=== PATIENT | female | born 1975 | race Caucasian/White ===

== ENCOUNTER 2017-09-08 18:02 | Emergency (ER) | payer MEDICARE, MEDICAID ==
[~2017-09-08] VITALS: Ht 175.3 cm; Wt 80.0 kg
[~2017-09-08 18:02] MED LIST: DARV PO; METH500T3 PO; TRAM50 PO; Z.0.NO CURRENT MEDS
[2017-09-08 18:07] VITALS: BP 150/83; PULSE 83; RESP 14; TEMP 97.8; O2SAT 99
[2017-09-08 19:59] VITALS: BP 171/78; PULSE 75; RESP 19; O2SAT 97
[2017-09-08] MEDS ORDERED: SODIUM CHLOR 0.9% 1000 ML INJ 1,000 ML IV ONE (20:10)
[2017-09-08] MEDS ORDERED: MORPHINE SULFATE 4 MG/ML INJ IV PUSH ONE (20:15)
[2017-09-08] MEDS ORDERED: ONDANSETRON HCL 4 MG/2 ML VIAL IM ONE (20:15)
[2017-09-08] MEDS ORDERED: SODIUM CHLORIDE 0.9% FLUSH 10 ML FLUSH IVF PRN (20:15)
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
[2017-09-08 20:36] VITALS: BP 154/85; PULSE 72; RESP 18; O2SAT 98
[2017-09-08 20:41] LABS: AUTOMATED NEUTROPHIL # 4.9 TH/MM3 (1.8-7.7); BASOPHIL % 0.6 % (0.0-2.0); EOSINOPHIL # 0.2 TH/MM3 (0-0.4); EOSINOPHIL % 2.8 % (0.0-4.0); HEMATOCRIT 39.6 % (35.0-46.0); HEMO FLAGS DIFF FINAL; LYMPH % 28.5 % (9.0-44.0); LYMPHOCYTE # 2.2 TH/MM3 (1.0-4.8); MEAN CELL VOLUME 93.3 FL (80.0-100.0); MEAN CORPUSCULAR HEMOGLOBIN 30.8 PG (27.0-34.0); MONO % 6.5 % (0.0-8.0); NEUT % 61.6 % (16.0-70.0); PLATELET COUNT 210 TH/MM3 (150-450); RED BLOOD COUNT 4.25 MIL/MM3 (4.00-5.30); RED CELL DISTRIBUTION WIDTH 14.2 % (11.6-17.2); WHITE BLOOD COUNT 7.9 TH/MM3 (4.0-11.0)
[2017-09-08 21:01] LABS: ALT (GPT) 139 U/L (10-53)
[2017-09-08 21:04] LABS: ALKALINE PHOSPHATASE 124 U/L (45-117); TOTAL BILIRUBIN ADULT 0.2 MG/DL (0.2-1.0)
[2017-09-08 21:15] LABS: ANION GAP 5 MEQ/L (5-15); AST (GOT) 95 U/L (15-37); BICARBONATE 28.2 MEQ/L (21.0-32.0); BLOOD UREA NITROGEN 19 MG/DL (7-18); CHLORIDE 104 MEQ/L (98-107); GLOMERULAR FILTRATION RATE 57 ML/MIN (>89); POTASSIUM 4.3 MEQ/L (3.5-5.1); SODIUM (NA) 137 MEQ/L (136-145)
[2017-09-08 21:42] LABS: BLOOD, URINE SMALL (NEG); GLUCOSE,URINE NEG (NEG); KETONE, URINE NEG (NEG); NITRITE,URINE NEG (NEG); URINE COLOR YELLOW (YELLW/STRAW)
[2017-09-08 22:04] LABS: MUCUS URINE RARE /lpf (OCC)
[2017-09-08 22:05] LABS: BACTERIA, URINE OCC /hpf; COMMENT (UR) CULTURE INDICATED; CULTURE IF INDICATED CULTURE INDICATED; SQUAMOUS EPITHELIAL CELL URINE 0-5 /hpf (0-5)
[2017-09-08] MEDS ORDERED: cefTRIAXone INJ 1,000 MG in SODIUM CHLORIDE 0.9% INJ 100 ML IV ONE (22:15)
--- NOTE | 2017-09-08 22:18 | PD ---
Physical Exam Date Seen by Provider: Sep 08, 2017 Data Data Last Documented VS Vital Signs Date Time Temp Pulse Resp B/P (MAP) Pulse Ox O2 Delivery O2 Flow Rate FiO2 09/08/17 20:36 72 18 154/85 (108) 98 Room Air 09/08/17 18:07 97.8 Orders Orders Complete Blood Count With Diff (09/08/17 20:10) Comprehensive Metabolic Panel (09/08/17 20:10) Urinalysis - C+S If Indicated (09/08/17 20:10) Ed Urine Pregnancytest Poc (09/08/17 20:10) Ecg Monitoring (09/08/17 20:10) Iv Access Insert/Monitor (09/08/17 20:10) Morphine Inj (Morphine Inj) (09/08/17 20:15) Sodium Chloride 0.9% Flush (Ns Flush) (09/08/17 20:15) Sodium Chlor 0.9% 1000 Ml Inj (Ns 1000 M (09/08/17 20:10) Ondansetron Inj (Zofran Inj) (09/08/17 20:15) Urine Culture (09/08/17 20:40) Ceftriaxone Inj (Rocephin Inj) (09/08/17 22:15) Labs Laboratory Tests Test 09/08/17 20:00 09/08/17 20:40 White Blood Count 7.9 TH/MM3 Red Blood Count 4.25 MIL/MM3 Hemoglobin 13.1 GM/DL Hematocrit 39.6 % Mean Corpuscular Volume 93.3 FL Mean Corpuscular Hemoglobin 30.8 PG Mean Corpuscular Hemoglobin Concent 33.0 % Red Cell Distribution Width 14.2 % Platelet Count 210 TH/MM3 Mean Platelet Volume 9.2 FL Neutrophils (%) (Auto) 61.6 % Lymphocytes (%) (Auto) 28.5 % Monocytes (%) (Auto) 6.5 % Eosinophils (%) (Auto) 2.8 % Basophils (%) (Auto) 0.6 % Neutrophils # (Auto) 4.9 TH/MM3 Lymphocytes # (Auto) 2.2 TH/MM3 Monocytes # (Auto) 0.5 TH/MM3 Eosinophils # (Auto) 0.2 TH/MM3 Basophils # (Auto) 0.0 TH/MM3 CBC Comment DIFF FINAL Differential Comment Blood Urea Nitrogen 19 MG/DL Creatinine 1.05 MG/DL Random Glucose 117 MG/DL Total Protein 6.8 GM/DL Albumin 2.9 GM/DL Calcium Level 8.3 MG/DL Alkaline Phosphatase 124 U/L Aspartate Amino Transf (AST/SGOT) 95 U/L Alanine Aminotransferase (ALT/SGPT) 139 U/L Total Bilirubin 0.2 MG/DL Sodium Level 137 MEQ/L Potassium Level 4.3 MEQ/L Chloride Level 104 MEQ/L Carbon Dioxide Level 28.2 MEQ/L Anion Gap 5 MEQ/L Estimat Glomerular Filtration Rate 57 ML/MIN Urine Color YELLOW Urine Turbidity CLEAR Urine pH 5.0 Urine Specific [place] 1.014 Urine Protein NEG mg/dL Urine Glucose (UA) NEG mg/dL Urine Ketones NEG mg/dL Urine Occult Blood SMALL Urine Nitrite NEG Urine Bilirubin NEG Urine Urobilinogen LESS THAN 2.0 MG/DL Urine Leukocyte Esterase SMALL Urine RBC 4-9 /hpf Urine WBC 3-5 /hpf Urine WBC Clumps RARE Urine Squamous Epithelial Cells 0-5 /hpf Urine Bacteria OCC /hpf Urine Mucus RARE /lpf Microscopic Urinalysis Comment CULTURE INDICATED MDM Medical Record Reviewed: Yes Supervised Visit with JOSHUA: Yes Interpretation(s) Vital Signs Date Time Temp Pulse Resp B/P (MAP) Pulse Ox O2 Delivery O2 Flow Rate FiO2 09/08/17 20:36 72 18 154/85 (108) 98 Room Air 09/08/17 19:59 75 19 171/78 (109) 97 Room Air 09/08/17 18:07 97.8 83 14 150/83 (105) 99 Laboratory Tests Test 09/08/17 20:00 09/08/17 20:40 White Blood Count 7.9 TH/MM3 (4.0-11.0) Red Blood Count 4.25 MIL/MM3 (4.00-5.30) Hemoglobin 13.1 GM/DL (11.6-15.3) Hematocrit 39.6 % (35.0-46.0) Mean Corpuscular Volume 93.3 FL (80.0-100.0) Mean Corpuscular Hemoglobin 30.8 PG (27.0-34.0) Mean Corpuscular Hemoglobin Concent 33.0 % (32.0-36.0) Red Cell Distribution Width 14.2 % (11.6-17.2) Platelet Count 210 TH/MM3 (150-450) Mean Platelet Volume 9.2 FL (7.0-11.0) Neutrophils (%) (Auto) 61.6 % (16.0-70.0) Lymphocytes (%) (Auto) 28.5 % (9.0-44.0) Monocytes (%) (Auto) 6.5 % (0.0-8.0) Eosinophils (%) (Auto) 2.8 % (0.0-4.0) Basophils (%) (Auto) 0.6 % (0.0-2.0) Neutrophils # (Auto) 4.9 TH/MM3 (1.8-7.7) Lymphocytes # (Auto) 2.2 TH/MM3 (1.0-4.8) Monocytes # (Auto) 0.5 TH/MM3 (0-0.9) Eosinophils # (Auto) 0.2 TH/MM3 (0-0.4) Basophils # (Auto) 0.0 TH/MM3 (0-0.2) CBC Comment DIFF FINAL Differential Comment Blood Urea Nitrogen 19 MG/DL (7-18) Creatinine 1.05 MG/DL (0.50-1.00) Random Glucose 117 MG/DL (74-106) Total Protein 6.8 GM/DL (6.4-8.2) Albumin 2.9 GM/DL (3.4-5.0) Calcium Level 8.3 MG/DL (8.5-10.1) Alkaline Phosphatase 124 U/L (45-117) Aspartate Amino Transf (AST/SGOT) 95 U/L (15-37) Alanine Aminotransferase (ALT/SGPT) 139 U/L (10-53) Total Bilirubin 0.2 MG/DL (0.2-1.0) Sodium Level 137 MEQ/L (136-145) Potassium Level 4.3 MEQ/L (3.5-5.1) Chloride Level 104 MEQ/L (98-107) Carbon Dioxide Level 28.2 MEQ/L (21.0-32.0) Anion Gap 5 MEQ/L (5-15) Estimat Glomerular Filtration Rate 57 ML/MIN (>89) Urine Color YELLOW (YELLW/STRAW) Urine Turbidity CLEAR (CLEAR) Urine pH 5.0 (5.0-8.5) Urine Specific [place] 1.014 (1.002-1.035) Urine Protein NEG mg/dL (NEG-TRACE) Urine Glucose (UA) NEG mg/dL (NEG) Urine Ketones NEG mg/dL (NEG) Urine Occult Blood SMALL (NEG) Urine Nitrite NEG (NEG) Urine Bilirubin NEG (NEG) Urine Urobilinogen LESS THAN 2.0 MG/DL (LESS Urine Leukocyte Esterase SMALL (NEG) Urine RBC 4-9 /hpf (0-3) Urine WBC 3-5 /hpf (0-5) Urine WBC Clumps RARE (NONE) Urine Squamous Epithelial Cells 0-5 /hpf (0-5) Urine Bacteria OCC /hpf (NONE) Urine Mucus RARE /lpf (OCC) Microscopic Urinalysis Comment CULTURE INDICATED Differential Diagnosis Kidney stone, UTI, pyelonephritis Narrative Course I, Dr. Mcclellan, have reviewed the advance practice practitioner's documentation and am in agreement, met with the patient face to face, made the diagnosis, and the medical decision making was done by me. *My assessment and Findings: Patient is a 42-year-old female who presents to emergency room for evaluation of bilateral lower back pain with dysuria, urinary frequency urgency and hematuria. Patient reports that she has had subjective fevers and chills, reports no abdominal pain, denies any nausea or vomiting. During the course of her emergency room visit, differential diagnosis was reviewed with patient. Patient was placed on a reinforcing steel worker wire mesh and had frequent blood pressure monitoring. The patient did have a 20-gauge IV access obtained and blood work was sent. Patient was given IV morphine, IV fluids as well as IV Zofran for nausea and pain. CBC & BMP Diagram 09/08/17 20:00 Total Protein 6.8, Albumin 2.9 L, Calcium Level 8.3 L, Alkaline Phosphatase 124 H, Aspartate Amino Transf (AST/SGOT) 95 H, Alanine Aminotransferase (ALT/SGPT) 139 H, Total Bilirubin 0.2 UA is positive for small leuk esterase, 3-5 white blood cells, rare white blood cell clumps, occasional bacteria, 4-9 red blood cells. Patient with most likely pyelonephritis versus UTI. Urine culture was sent, patient will be given IV dose of Rocephin and sent home with a prescription for antibiotics. I reviewed all labs and all studies with patient in detail, she will return to the emergency as needed. Patient is happy with plan of care. Diagnosis Primary Impression: UTI (urinary tract infection) Qualified Codes: N30.01 - Acute cystitis with hematuria Patient Instructions: General Instructions Additional Instruction: Please take all antibiotics as prescribed Please follow-up with all cultures from today Please follow up with your primary care doctor in 2-3 days Return to the ER if symptoms worsen or progress Return to the ER as needed Med/Other Pt SpecificInfo: Prescription(s) given Scripts Nitrofurantoin Monohydrate Macrocrystals (Macrobid) 100 Mg Cap 100 MG PO BID for Infection for 10 Days, #20 CAP 0 Refills Prov: Kerry Mcclellan DO 09/08/17 Disposition: 01 DISCHARGE HOME Condition: Stable Kerry Mcclellan DO Sep 08, 2017 22:18
[2017-09-08] MEDS ORDERED: MACR100C2 PO (23:10)
== END 2017-09-08 23:45 | disposition home or self-care (01) ==
LOC: NEPD 18:02
DX: N30.01 Acute cystitis with hematuria (principal); B96.29 Other Escherichia coli [E. coli] as the cause of diseases classified elsewhere; F17.200 Nicotine dependence, unspecified, uncomplicated
CPT/HCPCS: 80053; 81001; 85025; 87077; 87086; 87186; 96361; 96365; 96372; 96375; 99284; J0696; J2270; J2405; J7030

== ENCOUNTER 2018-04-04 07:57 | Emergency (ER) | payer MEDICARE, MEDICAID ==
[~2018-04-04] VITALS: Ht 175.3 cm; Wt 76.0 kg
[~2018-04-04 07:57] MED LIST changes: -DARV PO; +MACR100C2 PO; -METH500T3 PO; -TRAM50 PO; -Z.0.NO CURRENT MEDS
[2018-04-04 08:01] VITALS: BP 180/95; PULSE 80; RESP 18; TEMP 100.6
[2018-04-04] MEDS ORDERED: SODIUM CHLOR 0.9% 1000 ML INJ 1,000 ML IV SCH (08:06)
--- NOTE | 2018-04-04 08:09 | PD ---
HPI Chief Complaint: Back pain Time Seen by Provider: 08:06 Travel History International Travel<30 days: No Contact w/Intl Traveler<30days: No Traveled to known affect area: No History of Present Illness HPI The patient is a 42-year-old female who presents to the emergency department via EMS for low back pain, dysuria, frequency, urgency, and fever. The patient states she has had a 3 day history of dysuria with frequency and urgency. The patient then developed a fever as high as 103 this morning. The patient now complains of back pain on left lower aspect of her back which radiates to the right lower back into the left lower abdomen. She does note nausea with vomiting secondary to the pain, denies any anterior upper abdominal pain. The patient denies any current vaginal bleeding or discharge. The patient states she has a history of PTSD and depression, is currently homeless and living "on the streets ". The patient does complain of myalgias associated with the back pain. She denies any acute chest pain, shortness of breath, or cough. Symptoms are moderate. There are no current alleviating factors. PFSH Past Medical History Asthma: Yes Bipolar Disorder: Yes Depression: Yes Diabetes: No Diminished Hearing: No Hypertension: Yes Psychiatric: Yes (PTSD) Immunizations Current: Yes : 4 Para: 3 Miscarriage: 1 Tubal Ligation: Yes (1996) Social History Alcohol Use: No Tobacco Use: Yes (10/24 ppd) Substance Use: Yes (HX IV DRUG ABUSE) Allergies-Medications (Allergen,Severity, Reaction): Coded Allergies: codeine (Verified Allergy, Severe, Anaphylaxis, 04/04/18) ketorolac (Unverified Allergy, Severe, HIVES-SOB, 04/04/18) tramadol (Unverified Allergy, Severe, ITCHING-SOB, 04/04/18) naloxone (Verified Allergy, Unknown, 04/04/18) Reported Meds & Prescriptions Reported Meds & Active Scripts Active Reported Prazosin (Prazosin HCl) 2 Mg Cap 4 Mg PO HS Citalopram (Citalopram Hydrobromide) 40 Mg Tab 40 Mg PO DAILY [place] Carbonate 300 Mg Cap 600 Mg PO HS [place] Carbonate 300 Mg Cap 300 Mg PO DAILY@0600 Hydroxyzine HCl 50 Mg Tab 50 Mg PO QID PRN Review of Systems Except as stated in HPI: all other systems reviewed are Neg General / Constitutional: Positive: Fever, Chills HENT: No: Lightheadedness Cardiovascular: No: Chest Pain or Discomfort Respiratory: No: Shortness of Breath Gastrointestinal: Positive: Nausea, Vomiting, No: Diarrhea, Abdominal Pain Genitourinary: Positive: Urgency, Frequency, Dysuria, Flank Pain Musculoskeletal: Positive: Myalgias Skin: No Rash Physical Exam Narrative GENERAL: Awake, alert, pleasant 42-year-old female who appears her stated age and is in no acute respiratory distress. SKIN: Focused skin assessment warm/dry. HEAD: Atraumatic. Normocephalic. EYES: Pupils equal and round. No scleral icterus. No injection or drainage. ENT: No nasal bleeding or discharge. No visible teeth. NECK: Trachea midline. No JVD. CARDIOVASCULAR: Regular rate and rhythm. No murmur appreciated. Heart rate in the 90s. RESPIRATORY: No accessory muscle use. Clear to auscultation. Breath sounds equal bilaterally. GASTROINTESTINAL: Abdomen soft, non-tender, nondistended. No rebound tenderness. Back: No CVA tenderness. Mild tenderness of the sacroiliac and lower lumbar region bilaterally. MUSCULOSKELETAL: No obvious deformities. No clubbing. No cyanosis. No edema. NEUROLOGICAL: Awake and alert. No obvious cranial nerve deficits. Motor grossly within normal limits. Normal speech. PSYCHIATRIC: Appropriate mood and affect; insight and judgment normal. Data Data Last Documented VS Vital Signs Date Time Temp Pulse Resp B/P (MAP) Pulse Ox O2 Delivery O2 Flow Rate FiO2 04/04/18 11:00 100.2 04/04/18 08:20 99 Room Air 04/04/18 08:01 80 18 180/95 (123) Orders Orders Complete Blood Count With Diff (04/04/18 08:06) Comprehensive Metabolic Panel (04/04/18 08:06) Lipase (04/04/18 08:06) Lactic Acid (04/04/18 08:06) Urinalysis - C+S If Indicated (04/04/18 08:06) Iv Access Insert/Monitor (04/04/18 08:06) Ecg Monitoring (04/04/18 08:06) Oximetry (04/04/18 08:06) Morphine Inj (Morphine Inj) (04/04/18 08:15) Sodium Chlor 0.9% 1000 Ml Inj (Ns 1000 M (04/04/18 08:06) Sodium Chloride 0.9% Flush (Ns Flush) (04/04/18 08:15) Ondansetron Odt (Zofran Odt) (04/04/18 08:15) Blood Culture (04/04/18 08:06) Acetaminophen (Tylenol) (04/04/18 08:15) [place] (Li) (04/04/18 08:09) Vascular Access Team Consult/P PRN (04/04/18 08:40) Vascular Poc Ultrasound (04/04/18 ) Ct Abd/Pel W/O Iv Contrast (04/04/18 ) Ed Discharge Order (04/04/18 11:23) Labs Laboratory Tests Test 04/04/18 08:19 04/04/18 09:11 Urine Color YELLOW Urine Turbidity CLEAR Urine pH 6.0 Urine Specific [place] 1.020 Urine Protein TRACE mg/dL Urine Glucose (UA) NEG mg/dL Urine Ketones NEG mg/dL Urine Occult Blood NEG Urine Nitrite NEG Urine Bilirubin NEG Urine Urobilinogen 4.0 MG/DL Urine Leukocyte Esterase NEG Urine RBC 2 /hpf Urine WBC 2 /hpf Urine Squamous Epithelial Cells 2 /hpf Urine Hyaline Casts 2 /lpf Microscopic Urinalysis Comment CULT NOT INDICATED White Blood Count 9.1 TH/MM3 Red Blood Count 4.70 MIL/MM3 Hemoglobin 13.7 GM/DL Hematocrit 41.1 % Mean Corpuscular Volume 87.5 FL Mean Corpuscular Hemoglobin 29.2 PG Mean Corpuscular Hemoglobin Concent 33.4 % Red Cell Distribution Width 13.9 % Platelet Count 164 TH/MM3 Mean Platelet Volume 9.3 FL Neutrophils (%) (Auto) 91.8 % Lymphocytes (%) (Auto) 5.3 % Monocytes (%) (Auto) 2.3 % Eosinophils (%) (Auto) 0.3 % Basophils (%) (Auto) 0.3 % Neutrophils # (Auto) 8.3 TH/MM3 Lymphocytes # (Auto) 0.5 TH/MM3 Monocytes # (Auto) 0.2 TH/MM3 Eosinophils # (Auto) 0.0 TH/MM3 Basophils # (Auto) 0.0 TH/MM3 CBC Comment DIFF FINAL Differential Comment Blood Urea Nitrogen 10 MG/DL Creatinine 1.11 MG/DL Random Glucose 88 MG/DL Total Protein 7.9 GM/DL Albumin 3.2 GM/DL Calcium Level 9.0 MG/DL Alkaline Phosphatase 96 U/L Aspartate Amino Transf (AST/SGOT) 74 U/L Alanine Aminotransferase (ALT/SGPT) 105 U/L Total Bilirubin 0.9 MG/DL Sodium Level 138 MEQ/L Potassium Level 3.4 MEQ/L Chloride Level 102 MEQ/L Carbon Dioxide Level 25.9 MEQ/L Anion Gap 10 MEQ/L Estimat Glomerular Filtration Rate 54 ML/MIN Lactic Acid Level 1.7 mmol/L Lipase 52 U/L [place] Level LESS THAN 0.1 MEQ/L MDM Medical Decision Making Medical Screen Exam Complete: Yes Emergency Medical Condition: Yes Medical Record Reviewed: Yes Interpretation(s) Laboratory Tests Test 04/04/18 08:19 04/04/18 09:11 Urine Color YELLOW Urine Turbidity CLEAR Urine pH 6.0 Urine Specific [place] 1.020 Urine Protein TRACE mg/dL Urine Glucose (UA) NEG mg/dL Urine Ketones NEG mg/dL Urine Occult Blood NEG Urine Nitrite NEG Urine Bilirubin NEG Urine Urobilinogen 4.0 MG/DL Urine Leukocyte Esterase NEG Urine RBC 2 /hpf Urine WBC 2 /hpf Urine Squamous Epithelial Cells 2 /hpf Urine Hyaline Casts 2 /lpf Microscopic Urinalysis Comment CULT NOT INDICATED White Blood Count 9.1 TH/MM3 Red Blood Count 4.70 MIL/MM3 Hemoglobin 13.7 GM/DL Hematocrit 41.1 % Mean Corpuscular Volume 87.5 FL Mean Corpuscular Hemoglobin 29.2 PG Mean Corpuscular Hemoglobin Concent 33.4 % Red Cell Distribution Width 13.9 % Platelet Count 164 TH/MM3 Mean Platelet Volume 9.3 FL Neutrophils (%) (Auto) 91.8 % Lymphocytes (%) (Auto) 5.3 % Monocytes (%) (Auto) 2.3 % Eosinophils (%) (Auto) 0.3 % Basophils (%) (Auto) 0.3 % Neutrophils # (Auto) 8.3 TH/MM3 Lymphocytes # (Auto) 0.5 TH/MM3 Monocytes # (Auto) 0.2 TH/MM3 Eosinophils # (Auto) 0.0 TH/MM3 Basophils # (Auto) 0.0 TH/MM3 CBC Comment DIFF FINAL Differential Comment Blood Urea Nitrogen 10 MG/DL Creatinine 1.11 MG/DL Random Glucose 88 MG/DL Total Protein 7.9 GM/DL Albumin 3.2 GM/DL Calcium Level 9.0 MG/DL Alkaline Phosphatase 96 U/L Aspartate Amino Transf (AST/SGOT) 74 U/L Alanine Aminotransferase (ALT/SGPT) 105 U/L Total Bilirubin 0.9 MG/DL Sodium Level 138 MEQ/L Potassium Level 3.4 MEQ/L Chloride Level 102 MEQ/L Carbon Dioxide Level 25.9 MEQ/L Anion Gap 10 MEQ/L Estimat Glomerular Filtration Rate 54 ML/MIN Lactic Acid Level 1.7 mmol/L Lipase 52 U/L [place] Level LESS THAN 0.1 MEQ/L Last Impressions Abdomen/Pelvis CT 04/04/18 0000 Signed Impressions: CONCLUSION: 1. Is more prominent spleen uncertain etiology 2. Liver does not appear particularly cirrhotic 3. Abnormal antrum of the stomach 4. I do not see a source of the patient's abdominal pain and fever. No inflamm atory changes are identified. Differential Diagnosis Differential diagnosis includes pyelonephritis, nephrolithiasis, hydronephrosis , UTI, sepsis, diverticulitis, dehydration, acute kidney injury, acute renal failure. Narrative Course IV was established, labs are drawn and sent, and the patient was placed on cardiac telemetry monitoring and continuous pulse oximetry monitoring. The patient was administered morphine, Zofran, Tylenol, and IV fluids. UA was sent to lab. Blood culture and lactic acid were sent to lab. White count is unremarkable. Lactic acid is normal. UA reveals urobilinogen, otherwise unremarkable. Therefore, noncontrast CT of the abdomen and pelvis was performed to evaluate for possible nephrolithiasis and/or diverticulitis. CT of the abdomen and pelvis is unremarkable is unremarkable. Labs are within normal limits and vitals are stable. Patient does have a febrile illness with no obvious source. Patient is advised alternate Tylenol and Motrin and follow- up with a primary physician. Diagnosis Primary Impression: Febrile illness Additional Impression: Back pain Qualified Codes: M54.5 - Low back pain Referrals: [facility] as needed Patient Instructions: General Instructions Additional Instructions: Please provide the patient a copy of her labs and CT results at discharge. Follow-up with your primary physician. Return if symptoms worsen or progress. Med/Other Pt SpecificInfo: No Change to Meds Disposition: 01 DISCHARGE HOME Condition: Stable Chandu Deluca MD Apr 04, 2018 08:08
[2018-04-04] MEDS ORDERED: SODIUM CHLORIDE 0.9% FLUSH 10 ML FLUSH IV FLUSH PRN (08:15)
[2018-04-04] MEDS ORDERED: ACETAMINOPHEN 325 MG TAB PO ONE (08:15)
[2018-04-04] MEDS ORDERED: ONDANSETRON ODT 4 MG TAB PO ONE (08:15)
[2018-04-04] MEDS ORDERED: MORPHINE SULFATE 4 MG/ML INJ IV PUSH ONE (08:15)
[2018-04-04 08:20] VITALS: O2SAT 99
[2018-04-04] MEDS ORDERED: LITH300C2 PO ×2 (08:50)
[2018-04-04] MEDS ORDERED: HYDR50TA94 PO (08:50)
[2018-04-04] MEDS ORDERED: PRAZ2CAP PO (08:50)
[2018-04-04] MEDS ORDERED: CITA40TA4 PO (08:50)
[2018-04-04 08:58] LABS: BILIRUBIN, URINE NEG (NEG); BLOOD, URINE NEG (NEG); GLUCOSE,URINE NEG (NEG); HYALINE CAST, URINE 2 /lpf (RARE); KETONE, URINE NEG (NEG); NITRITE,URINE NEG (NEG); SQUAMOUS EPITHELIAL CELL URINE 2 /hpf (0-5); URINE COLOR YELLOW (YELLW/STRAW); URINE LEUKOCYTE ESTERASE NEG (NEG)
[2018-04-04 09:28] LABS: AUTOMATED NEUTROPHIL # 8.3 TH/MM3 (1.8-7.7); BASOPHIL % 0.3 % (0.0-2.0); EOSINOPHIL % 0.3 % (0.0-4.0); HEMATOCRIT 41.1 % (35.0-46.0); HEMOGLOBIN 13.7 GM/DL (11.6-15.3); LYMPH % 5.3 % (9.0-44.0); LYMPHOCYTE # 0.5 TH/MM3 (1.0-4.8); MEAN CELL VOLUME 87.5 FL (80.0-100.0); MEAN CORPUSCULAR HEMOGLOBIN 29.2 PG (27.0-34.0); MEAN CORPUSCULAR HGB CONC 33.4 % (32.0-36.0); MEAN PLATELET VOLUME 9.3 FL (7.0-11.0); MONO % 2.3 % (0.0-8.0); MONOCYTE # 0.2 TH/MM3 (0-0.9); NEUT % 91.8 % (16.0-70.0); PLATELET COUNT 164 TH/MM3 (150-450); RED CELL DISTRIBUTION WIDTH 13.9 % (11.6-17.2); WHITE BLOOD COUNT 9.1 TH/MM3 (4.0-11.0)
[2018-04-04 09:48] LABS: ALBUMIN 3.2 GM/DL (3.4-5.0); AST (GOT) 74 U/L (15-37); BICARBONATE 25.9 MEQ/L (21.0-32.0); BLOOD UREA NITROGEN 10 MG/DL (7-18); CHLORIDE 102 MEQ/L (98-107); CREATININE 1.11 MG/DL (0.50-1.00); GLOMERULAR FILTRATION RATE 54 ML/MIN (>89); GLUCOSE,RANDOM 88 MG/DL (74-106); SODIUM (NA) 138 MEQ/L (136-145)
[2018-04-04 09:49] LABS: ALT (GPT) 105 U/L (10-53)
[2018-04-04 09:51] LABS: ALKALINE PHOSPHATASE 96 U/L (45-117); TOTAL BILIRUBIN ADULT 0.9 MG/DL (0.2-1.0); TOTAL PROTEIN 7.9 GM/DL (6.4-8.2)
[2018-04-04 11:00] VITALS: TEMP 100.2
--- NOTE | 2018-04-04 11:18 | RADRPT ---
EXAM DATE: 04/04/2018 10:57 AM EDT AGE/SEX: 42 years / Female INDICATIONS: Abdominal pain with fever. CLINICAL DATA: This is the patient's initial encounter. Patient reports that signs and symptoms have been present for 1 day and indicates a pain score of 4/10. MEDICAL/SURGICAL HISTORY: Hypertension. Asthma. Tubal ligation. RADIATION DOSE: 15.13 CTDI (mGy) COMPARISON: No prior exams available for comparison. TECHNIQUE: Multiple contiguous axial images were obtained through the abdomen. Images were obtained using multiple row detector helical technique. Using dose reduction techniques, radiation dose was ke pt as low as reasonably achievable to obtain optimal diagnostic quality images. FINDINGS: Lower lungs are clear. The liver is free of focal defects. Gallbladder small and contracted Pancreas is unremarkable Spleen is prominent. The antrum of the stomach has a very thick wall, possibly due to contraction. Co rrelation suggested Adrenal glands and kidneys are unremarkable Cecum and abdominal colon is unremarkable without inflammatory changes. Moderate vascular callus occa sions are present without adenopathy In the pelvis there is no free fluid. Moderate stool is evident. Review of bone windows reveals only degenerative changes. CONCLUSION: 1. Is more prominent spleen uncertain etiology 2. Liver does not appear particularly cirrhotic 3. Abnormal antrum of the stomach 4. I do not see a source of the patient's abdominal pain and fever. No inflammatory changes are iden tified. Electronically signed by: Marques Villasenor MD 04/04/2018 11:16 AM EDT
== END 2018-04-04 12:13 | disposition home or self-care (01) ==
LOC: NEPC 07:57
DX: R50.9 Fever, unspecified (principal); M54.5 Low back pain; B96.89 Other specified bacterial agents as the cause of diseases classified elsewhere; R30.0 Dysuria; R35.0 Frequency of micturition; R11.2 Nausea with vomiting, unspecified; I10 Essential (primary) hypertension; J45.909 Unspecified asthma, uncomplicated; F31.9 Bipolar disorder, unspecified; F43.10 Post-traumatic stress disorder, unspecified; F17.210 Nicotine dependence, cigarettes, uncomplicated; Z59.0 Homelessness; Z88.5 Allergy status to narcotic agent; Z88.8 Allergy status to other drugs, medicaments and biological substances; Z79.899 Other long term (current) drug therapy
CPT/HCPCS: 74176; 80053; 80178; 81001; 83605; 83690; 85025; 87040; 87077; 87186; 87205; 96361; 96374; 99285; J2270; J7030

== ENCOUNTER 2018-04-13 21:26 | Emergency (ER) | payer MEDICARE, MEDICAID ==
[~2018-04-13] VITALS: Ht 175.3 cm; Wt 76.0 kg
[~2018-04-13 21:26] MED LIST changes: +CITA40TA4 PO; +HYDR50TA94 PO; +LITH300C2 PO; -MACR100C2 PO; +PRAZ2CAP PO
[2018-04-13 21:46] VITALS: BP 171/92; PULSE 87; RESP 16; TEMP 98.4; O2SAT 100
--- NOTE | 2018-04-13 22:48 | PD ---
HPI Chief Complaint: Skin Problem Time Seen by Provider: 22:37 Travel History International Travel<30 days: No Contact w/Intl Traveler<30days: No Traveled to known affect area: No History of Present Illness HPI 42-year-old white female presents emergency department with an abscess to her inner left thigh for the past 4 days. He states it has opened and drained. She states the pain is moderate to severe. She is homeless. She is living on the streets. She does not have access to shower to bathe. She denies any fever chills. Exacerbated by movement and palpation. No alleviating factors. History of MRSA in the past. She denies any IV drug abuse. States she is on Suboxone. [facility] Past Medical History Asthma: Yes Bipolar Disorder: Yes Anxiety: Yes (PTSD) Depression: Yes Diabetes: No Diminished Hearing: No Hypertension: Yes Psychiatric: Yes (PTSD) Immunizations Current: Yes Tetanus Vaccination: Unknown Influenza Vaccination: No ?: Not LMP: 03/23/2018 : 4 Para: 3 Miscarriage: 1 Tubal Ligation: Yes (1996) Social History Alcohol Use: No Tobacco Use: Yes (1 ppd) Substance Use: Yes (heroine) Allergies-Medications (Allergen,Severity, Reaction): Coded Allergies: codeine (Verified Allergy, Severe, Anaphylaxis, 04/13/18) ketorolac (Unverified Allergy, Severe, HIVES-SOB, 04/13/18) tramadol (Unverified Allergy, Severe, ITCHING-SOB, 04/13/18) naloxone (Verified Allergy, Unknown, 04/13/18) Reported Meds & Prescriptions Reported Meds & Active Scripts Active Reported Prazosin (Prazosin HCl) 2 Mg Cap 4 Mg PO HS Citalopram (Citalopram Hydrobromide) 40 Mg Tab 40 Mg PO DAILY [place] Carbonate 300 Mg Cap 600 Mg PO HS [place] Carbonate 300 Mg Cap 300 Mg PO DAILY@0600 Hydroxyzine HCl 50 Mg Tab 50 Mg PO QID PRN Review of Systems General / Constitutional: No: Fever, Chills Eyes: No: Visual changes HENT: No: Headaches Cardiovascular: No: Chest Pain or Discomfort Respiratory: No: Shortness of Breath Gastrointestinal: No: Abdominal Pain Genitourinary: No: Dysuria Musculoskeletal: Positive: Pain Skin: Positive Rash, Positive Lumps Neurologic: No: Weakness Psychiatric: No: Depression Endocrine: No: Polydipsia Hematologic/Lymphatic: No: Easy Bruising Physical Exam Narrative GENERAL: This is a well-nourished, well-developed patient, in no apparent distress. Patient's examined in the presence of a female sample selector. SKIN: No rashes, ecchymoses or lesions. Warm and dry. HEAD: Atraumatic. Normocephalic. EYES: PERRL, EOMI, no discharge or injection. No scleral icterus. EARS: Clear NOSE: Nasal turbinates appear normal. THROAT: Mucosa pink and moist. Airway patent. NECK: Trachea midline. supple, moves head freely. LUNGS: Clear to auscultation. CV: Regular in rhythm. ABDOMEN: Soft nontender. EXT: No clubbing cyanosis or edema. Patient has a 3 x 3 cm fluctuant abscess to the inner left thigh. There is some mild surrounding erythema. No pointing. Data Data Last Documented VS Vital Signs Date Time Temp Pulse Resp B/P (MAP) Pulse Ox O2 Delivery O2 Flow Rate FiO2 04/13/18 21:46 98.4 87 16 171/92 (118) 100 Room Air MDM Medical Decision Making Medical Screen Exam Complete: Yes Emergency Medical Condition: Yes Medical Record Reviewed: Yes Differential Diagnosis MDM: High Differential diagnoses: Abscess, folliculitis, cellulitis, lymphangitis, abrasion, contact dermatitis Narrative Course An incision and drainage has been performed. Patient is given Bactrim DS and doxycycline. Procedures Procedure Narrative I&D abscess: After the risks and benefits were discussed the following procedure was performed. The skin is prepped and draped in the usual sterile fashion using Betadine. The abscess is anesthetized with 1% lidocaine with epinephrine. After adequate anesthesia, an 11 blade scalpel is used to make a 2 centimeter central incision. Perulant material is expressed Loculations are broken up using curved Chen forceps. The wound is cleansed deeply using dilute Betadine and peroxide on Q-tips. The wound is packed open using iodoform gauze. A clean dressing is applied. The patient tolerated the procedure well. There was no complications. Follow-up instructions were given to the patient. Diagnosis Primary Impression: Abscess of left thigh Patient Instructions: General Instructions Additional Instructions: Rest. Elevation. keep clean and dry. remove the packing in two days. Daily wound care with soap, water and Neosporin. Three Advil every 6 hours. Doxycycline, Septra DS Follow-up with a primary care doctor in one week. Return to the ER for any problems. Med/Other Pt SpecificInfo: Prescription(s) given Disposition: 01 DISCHARGE HOME Condition: Stable Bunny Santiago Apr 13, 2018 22:48
[2018-04-13] MEDS ORDERED: DOXY100C PO (22:50)
[2018-04-13] MEDS ORDERED: BACT800T5 PO (22:50)
[2018-04-13] MEDS ORDERED: DOXYCYCLINE HYCLATE 100 MG CAP PO ONE (23:00)
[2018-04-13] MEDS ORDERED: LIDOCAINE 1%/EPINEPHrine 1:100,000 SOLN 20 ML VIAL INFIL ONE (23:00)
[2018-04-13] MEDS ORDERED: SULFAMETHOXAZOLE-TRIMETHOPRIM DS 800-160 MG TAB PO ONE (23:00)
== END 2018-04-13 23:49 | disposition home or self-care (01) ==
LOC: NEPD 21:26
DX: L02.416 Cutaneous abscess of left lower limb (principal); F31.9 Bipolar disorder, unspecified
CPT/HCPCS: 10060